=== PATIENT | male | born 1955 | race African-American/Black ===

== ENCOUNTER 2016-07-04 08:25 | Emergency (ER) | payer SELFPAY ==
--- NOTE | 2016-07-05 08:27 | ER ---
ADMIT: 07/04/2016 RM/LOC: ER [facility] MR#: [id number] [address] [facility] [address] [place] [address] Emergency Room Report SEX: M AGE: 60 : 1955 DATE: 07/04/2016 ADDENDUM: This 60-year-old black male, coming in with lip swelling, facial swelling. No airway obstruction. He does have widespread dental decay, loss of many teeth. He has no dental pain though. At this time, probably in all likelihood coming from his teeth. I did put him on amoxicillin 500 t.i.d. x10 days, prednisone 20 b.i.d. x4 days, starting in a.m. We had given him an injection of Decadron 20 IM x1. He has a followup with [facility]. CONDITION ON DISCHARGE: Fair. Michael Hudson MD/ patrick JOB #: [id number] CC: Michael Hudson MD, Attending Physician UNKNOWN, Family Physician
== END 2016-07-04 09:45 | disposition home or self-care (01) ==
LOC: ER 08:25
DX: K02.9 Dental caries, unspecified (principal); R22.0 Localized swelling, mass and lump, head; I10 Essential (primary) hypertension; F17.210 Nicotine dependence, cigarettes, uncomplicated; Z88.6 Allergy status to analgesic agent; Z79.899 Other long term (current) drug therapy

== ENCOUNTER → 2016-07-11 | Outpatient (CLI) | payer SELFPAY | END | disposition home or self-care (01) | LOC: RAD.S 13:14 | DX: I73.9 Peripheral vascular disease, unspecified (principal) ==

== ENCOUNTER 2016-07-14 19:27 | Emergency (ER) | payer SELFPAY ==
--- NOTE | 2016-07-27 15:54 | ER ---
ADMIT: 07/14/2016 RM/LOC: ER [facility] MR#: [id number] [address] [address] [place] [address] Emergency Room Report SEX: M AGE: 60 : 1955 DATE: 07/14/2016 A 60-year-old gentleman with a known vascular disease, comes to the Emergency Department with sudden severe pain in his right lower extremity. He had, had an arterial Doppler done 2 days prior, which showed an occlusion, but good collateral distal flow to the occlusion. Repeat arterial Doppler done tonight shows no changes. Of note, the patient was given IM morphine. He has requested the nurse to inject the morphine directly into his venous system. The patient is discharged with a diagnosis of known vascular disease, foot pain. Instructed to follow up with his doctor this week and keep his scheduled appointment with the vascular surgeon in [facility], which is on the . DIAGNOSES: 1. Foot pain. 2. Vascular disease. Wade Hammonds MD/ patrick JOB #: [id number] CC: Ryland Manning MD, Attending Physician Octavio Moreno MD, Family Physician
== END 2016-07-14 21:20 | disposition home or self-care (01) ==
LOC: ER 19:27
DX: M79.671 Pain in right foot (principal); I73.9 Peripheral vascular disease, unspecified; I10 Essential (primary) hypertension; F17.210 Nicotine dependence, cigarettes, uncomplicated; Z79.899 Other long term (current) drug therapy; Z88.6 Allergy status to analgesic agent

== ENCOUNTER 2016-07-26 15:55 | Emergency (ER) | payer SELFPAY ==
--- NOTE | 2016-07-29 13:57 | ER ---
ADMIT: 07/26/2016 RM/LOC: ER [facility] MR#: [id number] [address] [place], [place] [address] [place] [address] Emergency Room Report SEX: M AGE: 60 : 1955 DATE: 07/26/2016 CHIEF COMPLAINT: Swollen tongue. HISTORY OF PRESENT ILLNESS: This is a 60-year-old black male, who presents to the ER with 8 hours duration of tongue swelling. States he was on his way to visit his sister in [place] today when he noticed increasing swelling in his tongue and difficulty breathing. They were seen at the ER in [place], [place] where he had a thorough workup including lab work. He was given 120 mg of Depo- Medrol as well as 50 mg of Benadryl. He did refuse EKG and CXR. They recommended observation overnight, he refused stating he would rather be admitted in [place]. They did tell him to stop taking the hydrochlorothiazide and lisinopril that he takes for his high blood pressure. He presents to the ER here stating that he was sent by [place] to be admitted. However, he states he is improving. He thinks the swelling in his tongue is decreasing. He feels like his breathing is easier. States he has been having this problem off and on for the past month. He has been on lisinopril for over a year without difficulty. At present denies any fevers, chills, congestion, cough, difficulty breathing. He is resting comfortably. PAST MEDICAL HISTORY: Peripheral vascular disease. He is due to see a surgeon to address this. Complains of pain in the bilateral lower legs, hypertension, hyperlipidemia. MEDICATIONS: He is on: 1. Gabapentin. 2. Bystolic. 3. Livalo. ALLERGIES: TO TORADOL AND TRAMADOL. SOCIAL HISTORY: Does smoke half a pack per day. COURSE IN EMERGENCY ROOM: PHYSICAL EXAM: GENERAL: No acute distress. He is alert. No face or shoulder erythema. NECK: No lymphadenopathy or neck swelling. Trachea is midline. EYES: Equal and reactive. MOUTH and THROAT: Pharynx is nonerythematous, however, difficult to appreciate as his tongue is moderately swollen. I am able to visualize the back of the pharynx, tonsils are non exudative. Tongue does obscure the posterior tonsillar pillars. NOSE: Left side has some mucosal edema. CHEST: Clear to auscultation. No wheezes, rhonchi, or rales. HEART: Regular. ABDOMEN: Soft, nontender. EXTREMITIES: Nontender. No rash. ADMIT: 07/26/2016 RM/LOC: ER [facility] MR#: [id number] [address] [address] [place] [address] [place] [address] Emergency Room Report SEX: M AGE: 60 : 1955 We did phone [place], [place] today to verify the encounter they had today. They did give him medicines as he refused admission. Did give him a dose of Pepcid 20 mg prior to discharge. He was also discharged with a script for prednisone. IMPRESSION: Tongue swelling. Possible relation to the lisinopril. Due to [place]'s course of treatment, he will discontinue this medication. I had a long discussion with the patient, warning him of signs and symptoms to monitor for and to certainly return with any signs of airway compromise. DISPOSITION: The patient was discharged, script for prednisone 20 mg tabs 2 tabs p.o. daily for 5 days. He is to continue his other medications. Discontinue the hydrochlorothiazide lisinopril. He is going to double his Bystolic per Loco's order. He is to follow up with Dr. Moreno sometime this week to address his hypertension medication. Questions sought and answered to best of my ability and the patient's satisfaction. Discharged in stable condition. SEJAL Mccracken / Michael Hudson MD / patrick JOB #: [id number] CC: Michael Hudson MD, Attending Physician
== END 2016-07-26 17:01 | disposition home or self-care (01) ==
LOC: ER 15:55
DX: K14.8 Other diseases of tongue (principal); I10 Essential (primary) hypertension; E78.5 Hyperlipidemia, unspecified; F17.210 Nicotine dependence, cigarettes, uncomplicated; Z79.899 Other long term (current) drug therapy

== ENCOUNTER → 2016-07-29 | Outpatient (CLI) | payer SELFPAY | END | disposition home or self-care (01) | LOC: PTH.S 11:15 | DX: Z01.812 Encounter for preprocedural laboratory examination (principal); I73.9 Peripheral vascular disease, unspecified ==

== ENCOUNTER → 2016-08-01 | Outpatient (CLI) | payer OTHER | END | disposition home or self-care (01) | LOC: PTH.S 07:45 | DX: I10 Essential (primary) hypertension (principal) ==